=== PATIENT | male | born 1940 | race Caucasian/White ===

== ENCOUNTER → 2020-10-25 11:35 | Outpatient (CLI) | payer MEDICARE, BC, SELFPAY ==
--- NOTE | 2020-10-25 | DI.US.S_ITS ---
PROCEDURE: US ABDOMEN LIMITED INDICATIONS: RUQ PAIN TECHNIQUE: Real-time focused scanning was performed of the abdomen, with image documentation. COMPARISON: None. FINDINGS: The liver is normal in size and echotexture. No intrahepatic biliary distension is found. The gallbladder contains a 3-4 mm posterior gallbladder wall polyp, without evidence of calculus or gallbladder wall inflammation. The gallbladder measures up to 1.2 mm in maximal thickness. The adjacent common duct measures 4.4 mm, normal. The pancreas visualized appears normal. No free fluid is seen. IMPRESSION: Normal limited right upper quadrant ultrasound except for presence of a 3-4 mm gallbladder wall polyp as an incidental finding. Dictated by: Loy Gonzalez M.D. on 10/25/2020 at 12:59 Approved by: Loy Gonzalez M.D. on 10/25/2020 at 13:01
== END ==
PROVIDERS: PCP Physician Assistant; Referring Provider Physician Assistant; Visit Provider Physician Assistant
DX: R10.11 Right upper quadrant pain (principal); K82.4 Cholesterolosis of gallbladder
CPT/HCPCS: 76705

== ENCOUNTER → 2023-09-20 10:22 | Outpatient (CLI) | payer MEDICARE, BC, SELFPAY ==
[2023-09-20 19:21] LABS: Add Manual Diff / Slide Review NO; Basophils Absolute Auto 0 /uL (0-100); Basophils Percent Auto 0.6 % (0-2); Eosinophils Absolute Auto 100 /uL (0-450); Eosinophils Percent Auto 1.6 % (2-4); Hematocrit 37.3 % (41-53); Hemoglobin 12.6 g/dL (13.5-17.5); Lymphocytes Absolute Auto 1500 /uL (1100-4500); Lymphocytes Percent Auto 32.3 % (25-40); Mean Corpuscular HGB Conc 33.8 % (30-36); Mean Corpuscular Volume 91.9 fL (80-100); Monocytes Absolute Auto 500 /uL (0-900); Monocytes Percent Auto 11.4 % (3-14); Neutrophils Absolute Auto 2500 /uL (1500-7000); Neutrophils Percent Auto 54.1 % (50-75); Platelet Count 194 X10^3/uL (150-400); Red Blood Cell Count 4.06 X10^6/uL (4.5-5.9); Red Cell Distribution Width 13.2 % (11.6-14.8); White Blood Cell Count 4.6 X10^3/uL (4.5-11.0)
[2023-09-20 19:56] LABS: Alanine Aminotransferase 21 IU/L (<50); Albumin 4.1 g/dL (3.5-5.0); Albumin Globulin Ratio 1.4 (1.0-2.8); Alkaline Phosphatase 41 U/L (38-126); Aspartate Aminotransferase 27 IU/L (17-59); BUN Creatinine Ratio 18.1 (6-22); Bilirubin Total 0.6 mg/dL (0.2-1.3); Blood Urea Nitrogen 15 mg/dL (9-20); Calcium 9.6 mg/dL (8.4-10.2); Carbon Dioxide 33 mmol/L (22-32); Chloride 98 mmol/L (98-107); Estimated Glomerular Filt Rate > 60 mL/min (>60); Glucose 84 mg/dL (80-110); HEMOLYSIS < 15 (0-50); Potassium 4.1 mmol/L (3.4-5.1); Sodium 136 mmol/L (137-145); Total Protein 7.1 g/dL (6.3-8.2)
== END ==
PROVIDERS: PCP Family Medicine; Visit Provider Family Medicine
DX: R10.9 Unspecified abdominal pain (principal)
CPT/HCPCS: 80053; 85025

== ENCOUNTER → 2023-09-27 12:27 | Outpatient (CLI) | payer MEDICARE, BC, SELFPAY ==
--- NOTE | 2023-09-27 12:28 | DI.CT.S_ITS ---
PROCEDURE: CT ABDOMEN PELVIS W CON INDICATIONS: Anemia weight loss Failed colonoscopy TECHNIQUE: After the administration of intravenous contrast, axial sections acquired from the lung bases to the pubic symphysis. Coronal and sagittal reformats were performed. For radiation dose reduction, the following was used: automated exposure control, adjustment of mA and/or kV according to patient size. COMPARISON: None. FINDINGS: Image quality: Diagnostic Lower chest: Right middle lobe atelectasis or scarring. No pleural effusions. Mild nonspecific wall thickening of the distal esophagus. There is a small amount of reflux or fluid in the distal esophagus. This could be evaluated with endoscopy if indicated. Liver: No discrete solid hepatic mass. Gallbladder and biliary system: Unremarkable, nondilated Pancreas: No solid mass or pathologic ductal dilation. Mildly prominent duct at the head may be senescent. Spleen: No splenomegaly Adrenals: No discrete adrenal nodule Kidneys: No solid mass or hydronephrosis Vessels and lymph nodes: The main portal vein appears patent. No pathologic lymph nodes by size criteria. There are atherosclerotic calcifications. Bowel and peritoneum: No evidence of small bowel obstruction. Mostly liquid colonic contents. There is irregular appearance of the cecum. Body wall: Tiny fat containing umbilical hernia. Pelvis: Bladder is unremarkable. Prostate is heterogeneous and not well evaluated on CT. Bones: There are degenerative changes, no acute or suspicious osseous findings. IMPRESSION: Irregular appearance of the cecum is favored to represent desiccated stool mixing with oral contrast. No overt extramural disease. If colonoscopy is not possible and clinical concern remains high, consider MRI enterography or CT or barium colonography, although these are still less sensitive than colonoscopy. No definite active metastatic disease in the abdomen/pelvis. Liquid colonic contents, correlate for diarrhea and colitis symptoms. Other findings as above. Dictated by: Chon Negro M.D. on 09/27/2023 at 15:48 Approved by: Chon Negro M.D. on 09/27/2023 at 15:55
== END ==
PROVIDERS: PCP Family Medicine; Referring Provider Family Medicine; Visit Provider Family Medicine
DX: R19.5 Other fecal abnormalities (principal); R10.11 Right upper quadrant pain; D64.9 Anemia, unspecified
CPT/HCPCS: 74177; Q9967

== ENCOUNTER → 2024-03-06 13:08 | Outpatient (CLI) | payer MEDICARE, BC, SELFPAY ==
[2024-03-06 19:37] LABS: HEMOLYSIS < 15 (0-50); Iron 133 ug/dL (49-181)
[2024-03-06 19:42] LABS: Add Manual Diff / Slide Review NO; Basophils Absolute Auto 0 /uL (0-100); Basophils Percent Auto 0.5 % (0-2); Eosinophils Absolute Auto 200 /uL (0-450); Eosinophils Percent Auto 2.9 % (2-4); Hematocrit 36.9 % (41-53); Hemoglobin 12.5 g/dL (13.5-17.5); Lymphocytes Absolute Auto 1400 /uL (1100-4500); Lymphocytes Percent Auto 27.5 % (25-40); Mean Corpuscular HGB Conc 33.9 % (30-36); Mean Corpuscular Hemoglobin 31.2 PG (26-34); Monocytes Absolute Auto 400 /uL (0-900); Monocytes Percent Auto 7.5 % (3-14); Neutrophils Absolute Auto 3200 /uL (1500-7000); Neutrophils Percent Auto 61.6 % (50-75); Platelet Count 184 X10^3/uL (150-400); White Blood Cell Count 5.3 X10^3/uL (4.5-11.0)
[2024-03-06 19:50] LABS: Percent Iron Saturation 58 % (20-50); Total Iron Binding Capacity 228 ug/dL (261-462); Transferrin 183 mg/dL (206-381)
[2024-03-06 20:11] LABS: TSH w/ Reflex to FT4 0.99 uIU/mL (0.47-4.68)
[2024-03-06 20:33] LABS: Vitamin B12 366 pg/mL (239-931)
== END ==
PROVIDERS: PCP Family Medicine; Visit Provider Family Medicine
DX: D64.9 Anemia, unspecified (principal); R53.83 Other fatigue; M11.20 Other chondrocalcinosis, unspecified site
CPT/HCPCS: 82310; 82607; 83540; 83550; 83970; 84443; 85025

== ENCOUNTER → 2025-06-29 09:22 | Outpatient (CLI) | payer MEDICARE, BC, SELFPAY ==
[2025-06-29 19:33] LABS: Add Manual Diff / Slide Review NO; Hematocrit 35.8 % (41-53); Hemoglobin 12.1 g/dL (13.5-17.5); Lymphocytes Absolute Auto 1500 /uL (1100-4500); Mean Corpuscular HGB Conc 33.9 % (30-36); Mean Corpuscular Hemoglobin 30.7 PG (26-34); Mean Corpuscular Volume 90.5 fL (80-100); Platelet Count 179 X10^3/uL (150-400)
[2025-06-29 19:36] LABS: Alanine Aminotransferase 21 IU/L (<50); Albumin 3.9 g/dL (3.5-5.0); Albumin Globulin Ratio 1.3 (1.0-2.8); Alkaline Phosphatase 47 U/L (38-126); Blood Urea Nitrogen 18 mg/dL (9-20); Calcium 9.0 mg/dL (8.4-10.2); Carbon Dioxide 30 mmol/L (22-32); Chloride 101 mmol/L (98-107); Cholesterol 138 mg/dL (140-199); Estimated Glomerular Filt Rate > 60 mL/min (>60); Globulin 2.9 g/dL (1.7-4.1); Glucose 93 mg/dL (70-99); HDL Cholesterol 66 mg/dL (40-60); HEMOLYSIS < 15 (0-50); Potassium 4.0 mmol/L (3.4-5.1); Reticulocyte Count, Percent 1.0 % (0.9-2.6); Sodium 138 mmol/L (137-145); Total Protein 6.8 g/dL (6.3-8.2); Triglycerides 95 mg/dL (35-150)
[2025-06-29 20:03] LABS: TSH w/ Reflex to FT4 2.33 uIU/mL (0.47-4.68)
[2025-06-29 20:22] LABS: Vitamin B12 Reflex MMA if <400 430 pg/mL (239-931)
== END ==
PROVIDERS: PCP Family Medicine; Visit Provider Family Medicine
DX: Z12.5 Encounter for screening for malignant neoplasm of prostate (principal); I10 Essential (primary) hypertension; Z86.79 Personal history of other diseases of the circulatory system; D64.9 Anemia, unspecified; G30.9 Alzheimer's disease, unspecified; F02.80 Dementia in other diseases classified elsewhere, unspecified severity, without behavioral disturbance, psychotic disturbance, mood disturbance, and anxiety; R53.83 Other fatigue; N13.8 Other obstructive and reflux uropathy; N40.1 Benign prostatic hyperplasia with lower urinary tract symptoms; E78.2 Mixed hyperlipidemia; I71.21 Aneurysm of the ascending aorta, without rupture
CPT/HCPCS: 80053; 80061; 82607; 84443; 85025; 85045; G0103

== ENCOUNTER → 2025-08-10 07:35 | Outpatient (CLI) | payer MEDICARE, BC, SELFPAY ==
--- NOTE | 2025-08-10 07:36 | DI.NM.S_ITS ---
PROCEDURE: NM HIDA WITH CCK PHARMACEUTICAL: 5 mCi Tc-99m mebrofenin IV; 1.7 mcg CCK IV. INDICATIONS: suspect cholelithiasis TECHNIQUE: Following intravenous administration of Tc-99m mebrofenin, sequential anterior abdominal images were obtained. To evaluate the contractile response of the gallbladder in response to Cholecystokinin (CCK), sincalide (0.02 ???g/kg) was administered by slow intravenous infusion approximately 60 minutes after the administration of the radiopharmaceutical. Sequential imaging was continued for 30 minutes after the start of CCK infusion. Gallbladder ejection fraction was calculated. COMPARISON: [facility], CT, CT ABDOMEN PELVIS W CON, 09/27/2023, 13:36. FINDINGS: Biliary scan: There is normal tracer uptake and excretion by the liver. There is normal visualization of the intrahepatic ducts, common bile duct, and gallbladder. There is normal tracer transit into the duodenum. CCK stimulation: There is normal contractile response of the gallbladder to CCK infusion. The calculated gallbladder ejection fraction is 94 %; normal values are above 35%. IMPRESSION: Patent cystic duct. Normal gallbladder ejection fraction. Dictated by: Chon Negro M.D. on 08/10/2025 at 9:33 Approved by: Chon Negro M.D. on 08/10/2025 at 9:34
== END ==
LOC: NUCM 07:35
PROVIDERS: PCP Family Medicine; Referring Provider Family Medicine; Visit Provider Family Medicine
DX: K80.20 Calculus of gallbladder without cholecystitis without obstruction (principal); R10.11 Right upper quadrant pain
CPT/HCPCS: 78227; A9537; J2805